=== PATIENT | female | born 1985 | race Caucasian/White ===

== ENCOUNTER → 2018-09-07 | Outpatient (REF) | payer OTHER ==
[2018-09-07 18:37] LABS: APPEARANCE, URINE CLOUDY (CLEAR); BACTERIA, URINE AUTO 2+ (NEGATIVE); BILIRUBIN, URINE AUTO NEGATIVE (NEGATIVE); BLOOD, URINE BLOOD NEGATIVE (NEGATIVE); COLOR, URINE YELLOW (YELLOW); GLUCOSE, URINE (UA) AUTO NEGATIVE (NEGATIVE); KETONE, URINE AUTO NEGATIVE (NEGATIVE); LEUKOCYTE ESTERASE, URINE AUTO NEGATIVE (NEGATIVE); NITRITE, URINE AUTO NEGATIVE (NEGATIVE); PROTEIN, URINE AUTO NEGATIVE (NEGATIVE); RBC, URINE AUTO 1 /HPF (0-3); SPECIFIC GRAVITY URINE AUTO 1.005 (1.002-1.035); SQUAMOUS EPITHELIAL CELL UR AU 13 /HPF (0-6); UROBILINOGEN, URINE AUTO 0.2 mg/dL (0.0-2.0); WBC, URINE AUTO 1 /HPF (0-3)
== END ==
LOC: M LAB REF 16:48
DX: N39.0 Urinary tract infection, site not specified (principal)

== ENCOUNTER → 2018-11-23 | Outpatient (REF) | payer OTHER ==
[~2018-11-23] MED LIST: *ANUSOI RE; ACET500C OR; ACET50TA PO; COLA100C2 OR; IBUP600T OR; MILKSUS OR; PRENATAL VITAMIN OR
[2018-11-25 15:05] LABS: HPV HYBRID CAPTURE II Negative (Negative)
== END ==
LOC: M LAB REF 09:23
PROVIDERS: ATTEND Obstetrics & Gynecology
DX: Z12.4 Encounter for screening for malignant neoplasm of cervix (principal)

== ENCOUNTER → 2018-11-24 | Outpatient (CLI) | payer OTHER ==
--- NOTE | 2018-11-25 04:33 | REP ---
Clinical: IUD placement . Technique: Transabdominal pelvic ultrasound followed by transvaginal examination for better evaluation of the endometrium and adnexa with color Doppler evaluation of the ovaries. Findings: Bladder is unremarkable and measures 9.4 x 8.0 x 11.8 cm . Normal anteverted uterus measures 7.7 x 3.9 x 4.5 cm . The endometrial complex measures 3.9 mm thickness. IUD in satisfactory position. Small Nabothian cysts noted. Bilateral ovaries are normal in appearance and vascularity without evidence for torsion. Bilateral ovarian follicles identified. Right ovary measures 3.5 x 2.1 x 2.6 cm ; R I = 0.59 . Left ovary measures 3.1 x 2.1 x 2.6 cm ; R I = 0.56 . Small amount of free fluid in the pelvis. Impression: 1. Essentially normal pelvic ultrasound. IUD in satisfactory position. 2. Normal bilateral ovaries without torsion. Electronically Signed by Fernando Tang MD 11/25/2018 04:24 A
== END ==
LOC: M SMT 10:34
PROVIDERS: ATTEND Obstetrics & Gynecology
DX: Z30.431 Encounter for routine checking of intrauterine contraceptive device (principal); N88.8 Other specified noninflammatory disorders of cervix uteri

== ENCOUNTER 2018-12-20 08:45 | Day surgery (SDC) | payer OTHER ==
[~2018-12-20] VITALS: Ht 152.4 cm; Wt 52.6 kg
[~2018-12-20 08:45] MED LIST changes: +LIDOCAINE 2% INJ 100 MG/5 ML SDV (FOR ANES.) As Ordered ONE; +LR 1,000 ML IV ONE; +MIDAZOLAM INJ 2 MG/2 ML VIAL (J2250) As Ordered ONE; +PROPOFOL 200 MG/20 ML VIAL As Ordered ONE; +fentaNYL 100 MCG/2 ML INJECTION (J3010) As Ordered ONE
[2018-12-20 09:11] LABS: HEMATOCRIT 39.4 % (36.0-47.0); HEMOGLOBIN 12.8 g/dl (12.0-15.5); MEAN CORPUSCULAR HEMOGLOBIN 32.7 pg (27.0-33.0); MEAN CORPUSCULAR HGB CONC 32.5 g/dl (32.0-36.5); MEAN CORPUSCULAR VOLUME 100.5 fl (80.0-96.0); PLATELET COUNT, AUTOMATED 191 10^3/uL (150-450); RED BLOOD COUNT 3.92 10^6/uL (4.00-5.40); WHITE BLOOD COUNT 3.8 10^3/uL (4.0-10.0)
[2018-12-20 09:41] LABS: HCG, SERUM QUALITATIVE NEGATIVE (NEGATIVE)
[2018-12-20] MEDS ORDERED: LIDOCAINE 1% SDV INJ 30 ML VIAL As Ordered ONE (10:32)
[2018-12-20] MEDS ORDERED: SILVER NITRATE APPLICATOR As Ordered ONE (10:32)
[2018-12-20] MEDS ORDERED: dexameTHASONE 4 MG/ML 1ML VIAL (J1100) As Ordered ONE (11:32)
[2018-12-20] MEDS ORDERED: ONDANSETRON 4MG/2ML VIAL (J2405) As Ordered ONE (11:32)
[2018-12-20] MEDS ORDERED: KETOROLAC 60 MG/2 ML VIAL (J1885) As Ordered ONE (11:32)
[2018-12-20] MEDS ORDERED: LR 1,000 ML IV SCH (12:00)
[2018-12-20] MEDS ORDERED: ONDANSETRON 4MG/2ML VIAL (J2405) IV PRN (12:00)
[2018-12-20] MEDS ORDERED: fentaNYL 100 MCG/2 ML INJECTION (J3010) IV PRN (12:00)
[2018-12-20] MEDS ORDERED: PERCOCET 5MG/325MG TAB PO PRN (12:00)
[2018-12-20 12:15] VITALS: BP 101/58
--- NOTE | 2018-12-21 07:16 | RO ---
DATE OF PROCEDURE: 12/20/2018 PREOPERATIVE DIAGNOSIS: Retained intrauterine device. POSTOPERATIVE DIAGNOSIS: Retained intrauterine device. PROCEDURE PERFORMED: 1. Hysteroscopic guided removal of intrauterine device (IUD). 2. Insertion of new IUD, Mirena. SURGEON: Dr. Jai Davies VARNISH DIPPER: None. ANESTHESIA: IV sedation with a paracervical block using 1% lidocaine. SPECIMENS TO PATHOLOGY: None. ESTIMATED BLOOD LOSS: 2 mL. FLUIDS REPLACED: 600 mL lactated Ringers. DRAINS: None. COMPLICATIONS: None. PREOPERATIVE ANTIBIOTICS: None. INDICATION: The patient is a 33-year-old with a Mirena IUD. It is due to be replaced given that it has been approximately 5 years since the insertion. However, in the office, the IUD strings could not be visualized. The patient elected to forego any attempt at IUD removal in the office and preferred IUD removal under anesthesia and insertion of a new Mirena IUD. DESCRIPTION OF PROCEDURE: The patient was counseled and consented on the risks, benefits, indications, and alternatives of the procedure. Informed consent was obtained. She was taken to the operating room with IV running. She was placed on the operating table in dorsal supine position. Anesthesia was found to be adequate. She was placed in the high lithotomy position. She was prepared and draped in normal sterile fashion. A time-out was performed per protocol. The bladder was drained with an in-and-out sterile catheter. The sterile speculum placed good visualization of the cervix. Again, IUD strings were unable to be visualized. The anterior lip of the cervix was grasped with a single-tooth tenaculum and downward traction was applied. A paracervical block was admnistered The cervix was then sequentially dilated with Dmitry dilators up to #15. The attempt at IUD removal with the Venecia forceps was unsuccessful. The hysteroscope was then placed transcervically into the intrauterine cavity. The IUD shaft was visualized and the hysteroscopic grasper was used to grasp the shaft and then downward traction was applied, thus removing the IUD entirely intact. A picture of the intact IUD was taken once it was completely removed and is in the medical record. The uterus sounded to 7 cm. The new Mirena IUD was placed without any difficulty. The strings were cut to 2-3 cm extending from the external os. The single tooth tenaculum was removed. The tenaculum sites were hemostatic. All instruments were removed from the vagina. Sponge, lap, needle, and instrument counts were correct. The patient tolerated the entire procedure very well. She was transferred to the postanesthesia care unit (PACU) in good and stable condition. RICKY
== END 2018-12-20 13:12 | disposition home or self-care (01) ==
LOC: M SDC 08:45
PROVIDERS: ATTEND Obstetrics & Gynecology
DX: Z30.433 Encounter for removal and reinsertion of intrauterine contraceptive device (principal)
CPT/HCPCS: 36415; 58300; 58562; 84703; 85027; 86850; 86900; 86901; J1100; J1885; J2250; J2405; J3010; J7298

== ENCOUNTER → 2019-05-03 | Outpatient (REF) | payer OTHER ==
[~2019-05-03] MED LIST changes: -ACET50TA PO; -LIDOCAINE 2% INJ 100 MG/5 ML SDV (FOR ANES.) As Ordered ONE; -LR 1,000 ML IV ONE; +MAPA500T17 PO; -MIDAZOLAM INJ 2 MG/2 ML VIAL (J2250) As Ordered ONE; -PROPOFOL 200 MG/20 ML VIAL As Ordered ONE; -fentaNYL 100 MCG/2 ML INJECTION (J3010) As Ordered ONE
== END ==
LOC: M LAB REF 12:18
PROVIDERS: ATTEND Physician Assistant Medical
DX: N39.0 Urinary tract infection, site not specified (principal)

== ENCOUNTER → 2019-08-11 | Outpatient (REF) | payer OTHER, SELFPAY | LOC: M LAB REF 12:25 | PROVIDERS: ATTEND Physician Assistant | DX: N39.0 Urinary tract infection, site not specified (principal) ==

== ENCOUNTER → 2019-08-22 | Outpatient (REF) | payer OTHER, SELFPAY ==
[2019-08-22 15:04] LABS: CHLAMYDIA DNA AMPLIFICATION NEGATIVE (NEGATIVE); GC DNA AMPLIFICATION NEGATIVE (NEGATIVE)
== END ==
LOC: M LAB REF 12:19
PROVIDERS: ATTEND Physician Assistant
DX: R30.0 Dysuria (principal)

== ENCOUNTER → 2019-08-27 | Outpatient (REF) | payer OTHER, SELFPAY | LOC: M LAB REF 08:50 | PROVIDERS: ATTEND Physician Assistant | DX: N39.0 Urinary tract infection, site not specified (principal) ==

== ENCOUNTER → 2019-08-30 | Outpatient (REF) | payer OTHER, SELFPAY | LOC: M LAB REF 16:58 | PROVIDERS: ATTEND Advanced Practice Midwife | DX: R30.0 Dysuria (principal) ==

== ENCOUNTER 2023-02-05 11:58 | Emergency (ER) | payer OTHER, SELFPAY ==
[~2023-02-05] VITALS: Ht 152.4 cm; Wt 51.8 kg
[2023-02-05 17:36] VITALS: BP 138/75
== END 2023-02-05 17:46 | disposition home or self-care (01) ==
LOC: M ED 11:58
DX: R68.84 Jaw pain (principal); S09.93XA Unspecified injury of face, initial encounter; Y04.8XXA Assault by other bodily force, initial encounter; Y92.410 Unspecified street and highway as the place of occurrence of the external cause; Z88.8 Allergy status to other drugs, medicaments and biological substances

== ENCOUNTER → 2023-12-08 | Outpatient (CLI) | payer BC ==
[2023-12-08 12:02] LABS: BASO % 0.5 % (0.0-1.0); EOS # 0.1 10^3/uL (0.0-0.5); EOS % 1.8 % (0.0-3.0); HEMATOCRIT 41.5 % (36.0-47.0); HEMOGLOBIN 13.1 g/dl (12.0-15.5); LYMPH # 1.4 10^3/uL (1.5-5.0); LYMPH % 36.3 % (24.0-44.0); MEAN CORPUSCULAR HGB CONC 31.6 g/dl (32.0-36.5); MEAN CORPUSCULAR VOLUME 104.5 fl (80.0-96.0); MONO # 0.4 10^3/uL (0.0-0.8); MONO % 10.1 % (2.0-8.0); PLATELET COUNT, AUTOMATED 230 10^3/uL (150-450); RED BLOOD COUNT 3.97 10^6/uL (4.00-5.40); WHITE BLOOD COUNT 3.9 10^3/uL (4.0-10.0)
[2023-12-08 12:36] LABS: IRON (FE) 106 UG/DL (50-170); PERCENT SATURATION 33.7 % (13.2-45.0); TOTAL IRON BINDING CAPACITY 315 UG/DL (250-425)
[2023-12-08 12:37] LABS: ALKALINE PHOSPHATASE 29 U/L (46-116); ALT/SGPT 35 U/L (7.0-40); AST/SGOT 23 U/L (<34); BILIRUBIN,TOTAL 0.6 MG/DL (0.3-1.2); BLOOD UREA NITROGEN 11 MG/DL (9-23); CALCIUM LEVEL 9.4 MG/DL (8.5-10.1); CARBON DIOXIDE LEVEL 28 MMOL/L (20-31); CHLORIDE LEVEL 106 MMOL/L (98-107); CHOLESTEROL LEVEL 235 MG/DL (<200); CHOLESTEROL RISK RATIO 2.79 (<5); CREATININE FOR GFR 0.86 MG/DL (0.55-1.30); GLOMERULAR FILTRATION RATE > 60.0 (>60); GLUCOSE, FASTING 82 MG/DL (60-100); HDL CHOLESTEROL 84.1 MG/DL (>40); LDL CHOLESTEROL 135.7 MG/DL (<100); NON-HDL-C 150.9 MG/DL; POTASSIUM SERUM 4.7 MMOL/L (3.5-5.1); SODIUM LEVEL 140 MMOL/L (136-145); TOTAL PROTEIN 7.3 G/DL (5.7-8.2); TRIGLYCERIDES LEVEL 76 MG/DL (<150)
[2023-12-08 12:38] LABS: FOLATE 22.1 NG/ML (>5.4); THYROID STIMULATING HORMONE 1.999 uIU/ML (0.55-4.78); TOTAL 25(OH) VITAMIN D 51.7 NG/ML (20.0-100.0); VITAMIN B12 LEVEL 447 PG/ML (211-911)
[2023-12-08 12:39] LABS: FERRITIN 144.1 NG/ML (7.3-270.7)
[2023-12-08 14:33] LABS: THYROID PEROXIDASE ANTIBODY 41 U/ML (<60.0)
[2023-12-09 14:11] LABS: IgG P18 AB Absent (.); IgG P23 AB Absent (.); IgG P28 AB Absent (.); IgG P30 AB Absent (.); IgG P39 AB Absent (.); IgG P41 AB Absent (.); IgG P45 AB Absent (.); IgG P66 AB Absent (.); IgG P93 AB Present (.); IgM P23 AB Absent (.); IgM P39 AB Absent (.); IgM P41 AB Absent (.); LYME IgG WB INTERPRETATION Negative (.); LYME IgM WB INTERPRETATION Negative (.)
== END ==
LOC: M PLALAB 08:38
PROVIDERS: ATTEND Family Medicine
DX: R53.83 Other fatigue (principal)

== ENCOUNTER 2024-01-01 10:17 | Emergency (ER) | payer BC ==
[~2024-01-01] VITALS: Ht 152.4 cm; Wt 53.3 kg
[2024-01-01 10:19] VITALS: TEMP 97.7
[2024-01-01] MEDS ORDERED: BENZOIN TINCTURE 60ML BTL TOP ONE (11:40)
[2024-01-01 13:03] LABS: BASO % 0.7 % (0.0-1.0); EOS # 0.1 10^3/uL (0.0-0.5); EOS % 1.4 % (0.0-3.0); HEMATOCRIT 40.7 % (36.0-47.0); HEMOGLOBIN 13.2 g/dl (12.0-15.5); LYMPH # 1.7 10^3/uL (1.5-5.0); LYMPH % 29.5 % (24.0-44.0); MEAN CORPUSCULAR HEMOGLOBIN 33.3 pg (27.0-33.0); MEAN CORPUSCULAR HGB CONC 32.4 g/dl (32.0-36.5); MEAN CORPUSCULAR VOLUME 102.8 fl (80.0-96.0); MONO # 0.5 10^3/uL (0.0-0.8); NEUTROPHILS # 3.6 10^3/uL (1.5-8.5); NEUTROPHILS % 60.2 % (36.0-66.0); PLATELET COUNT, AUTOMATED 226 10^3/uL (150-450); RED BLOOD COUNT 3.96 10^6/uL (4.00-5.40); WHITE BLOOD COUNT 5.9 10^3/uL (4.0-10.0)
[2024-01-01 13:33] LABS: BLOOD UREA NITROGEN 11 MG/DL (9-23); CALCIUM LEVEL 9.5 MG/DL (8.5-10.1); CARBON DIOXIDE LEVEL 29 MMOL/L (20-31); CHLORIDE LEVEL 103 MMOL/L (98-107); CREATININE FOR GFR 0.82 MG/DL (0.55-1.30); GLOMERULAR FILTRATION RATE > 60.0 (>60); GLUCOSE, FASTING 87 MG/DL (60-100); POTASSIUM SERUM 4.2 MMOL/L (3.5-5.1); SODIUM LEVEL 138 MMOL/L (136-145)
[2024-01-01 13:34] LABS: HCG, SERUM QUALITATIVE NEGATIVE (NEGATIVE)
[2024-01-01 14:17] LABS: GC DNA AMPLIFICATION NEGATIVE (NEGATIVE)
[2024-01-01 14:32] VITALS: BP 137/86; O2SAT 100
== END 2024-01-01 14:34 | disposition home or self-care (01) ==
LOC: M ED 10:17
DX: N83.202 Unspecified ovarian cyst, left side (principal); N94.10 Unspecified dyspareunia; Z88.8 Allergy status to other drugs, medicaments and biological substances